=== PATIENT | female | born 1950 | race Caucasian/White ===

== ENCOUNTER → 2020-05-01 19:38 | Outpatient (ROUT) | payer MEDICARE, OTHER, SELFPAY ==
[2020-05-01 20:15] LABS: Hemoglobin A1C% w Est Avg Glu 5.5 % (4.0-6.0)
[2020-05-01 20:18] LABS: Cholesterol 226 mg/dL (140-199); Glucose 92 mg/dL (80-110); Triglycerides 41 mg/dL (35-150)
[2020-05-01 20:29] LABS: HDL Cholesterol 133 mg/dL (40-60); LDL Cholesterol Calculated 85 mg/dL (<100)
[2020-05-01 20:47] LABS: TSH w/ Reflex to FT4 1.43 uIU/mL (0.47-4.68)
== END ==
PROVIDERS: Visit Provider Internal Medicine
DX: R73.01 Impaired fasting glucose (principal); E03.9 Hypothyroidism, unspecified; E78.2 Mixed hyperlipidemia
CPT/HCPCS: 80061; 82947; 83036; 84443

== ENCOUNTER → 2022-05-23 09:59 | Outpatient (CLI) | payer MEDICARE, SELFPAY ==
[2022-05-23 10:34] LABS: Hematocrit 39.2 % (36-46); Hemoglobin 13.4 g/dL (12.0-16.0); Mean Corpuscular HGB Conc 34.3 % (30-36); Mean Corpuscular Hemoglobin 33.1 PG (26-34); Mean Corpuscular Volume 96.4 fL (80-100); Platelet Count 272 X10^3/uL (150-400); Red Blood Cell Count 4.06 X10^6/uL (4.0-5.2); White Blood Cell Count 4.6 X10^3/uL (4.5-11.0)
[2022-05-23 11:03] LABS: Alanine Aminotransferase 30 IU/L (<35); Albumin 4.8 g/dL (3.5-5.0); Albumin Globulin Ratio 1.4 (1.0-2.8); Alkaline Phosphatase 50 U/L (38-126); Aspartate Aminotransferase 40 IU/L (14-36); BUN Creatinine Ratio 42.2 (6-22); Bilirubin Total 0.3 mg/dL (0.2-1.3); Blood Urea Nitrogen 19 mg/dL (7-17); Calcium 9.6 mg/dL (8.4-10.2); Carbon Dioxide 31 mmol/L (22-32); Chloride 99 mmol/L (98-107); Cholesterol 200 mg/dL (140-199); Estimated Glomerular Filt Rate > 60 mL/min (>60); Globulin 3.5 g/dL (1.7-4.1); Glucose 101 mg/dL (80-110); HEMOLYSIS < 15 (0-50); Potassium 4.5 mmol/L (3.4-5.1); Sodium 138 mmol/L (137-145); Total Protein 8.3 g/dL (6.3-8.2); Triglycerides 41 mg/dL (35-150)
[2022-05-23 11:24] LABS: HDL Cholesterol 139 mg/dL (40-60); LDL Cholesterol Calculated 53 mg/dL (<100); Vitamin D 25 Hydroxy (D3) 54.8 ng/mL (30.0-100.0)
[2022-05-23 11:31] LABS: TSH w/ Reflex to FT4 0.04 uIU/mL (0.47-4.68)
[2022-05-23 11:58] LABS: Free T4, Direct Thyroxine 1.54 ng/dL (0.78-2.19)
== END ==
PROVIDERS: PCP Internal Medicine; Referring Provider Internal Medicine; Visit Provider Internal Medicine
DX: E03.9 Hypothyroidism, unspecified (principal); E55.9 Vitamin D deficiency, unspecified; E78.2 Mixed hyperlipidemia; J30.9 Allergic rhinitis, unspecified; J45.20 Mild intermittent asthma, uncomplicated
CPT/HCPCS: 36415; 80053; 80061; 82306; 84439; 84443; 85027

== ENCOUNTER → 2022-06-09 11:46 | Outpatient (CLI) | payer MEDICARE, SELFPAY ==
[2022-06-09 14:16] LABS: TSH w/ Reflex to FT4 0.06 uIU/mL (0.47-4.68)
[2022-06-09 14:41] LABS: Free T4, Direct Thyroxine 1.53 ng/dL (0.78-2.19)
== END ==
PROVIDERS: PCP Internal Medicine; Referring Provider Internal Medicine; Visit Provider Internal Medicine
DX: M85.88 Other specified disorders of bone density and structure, other site (principal); Z78.0 Asymptomatic menopausal state; Z13.820 Encounter for screening for osteoporosis; E03.9 Hypothyroidism, unspecified
CPT/HCPCS: 36415; 77080; 84439; 84443

== ENCOUNTER → 2023-05-25 08:39 | Outpatient (CLI) | payer MEDICARE, SELFPAY ==
[2023-05-25 09:26] LABS: Aspartate Aminotransferase 42 IU/L (14-36); BUN Creatinine Ratio 50.9 (6-22); Blood Urea Nitrogen 27 mg/dL (7-17); Calcium 10.1 mg/dL (8.4-10.2); Carbon Dioxide 31 mmol/L (22-32); Chloride 98 mmol/L (98-107); Cholesterol 192 mg/dL (140-199); Estimated Glomerular Filt Rate > 60 mL/min (>60); Glucose 82 mg/dL (80-110); HEMOLYSIS < 15 (0-50); Potassium 4.4 mmol/L (3.4-5.1); Sodium 136 mmol/L (137-145); Triglycerides 39 mg/dL (35-150)
[2023-05-25 09:36] LABS: LDL Cholesterol Calculated 43 mg/dL (<100)
[2023-05-25 09:37] LABS: HDL Cholesterol 141 mg/dL (40-60)
[2023-05-25 09:57] LABS: TSH w/ Reflex to FT4 2.31 uIU/mL (0.47-4.68)
== END ==
PROVIDERS: PCP Internal Medicine; Referring Provider Internal Medicine; Visit Provider Internal Medicine
DX: E03.9 Hypothyroidism, unspecified (principal); E78.2 Mixed hyperlipidemia
CPT/HCPCS: 36415; 80048; 80061; 84443; 84450

== ENCOUNTER → 2024-07-19 08:29 | Outpatient (CLI) | payer MEDICARE, SELFPAY ==
[2024-07-19 10:18] LABS: Aspartate Aminotransferase 42 IU/L (14-36); BUN Creatinine Ratio 31.7 (6-22); Blood Urea Nitrogen 19 mg/dL (7-17); Calcium 10.2 mg/dL (8.4-10.2); Carbon Dioxide 29 mmol/L (22-32); Chloride 98 mmol/L (98-107); Cholesterol 211 mg/dL (140-199); Estimated Glomerular Filt Rate > 60 mL/min (>60); Glucose 90 mg/dL (80-110); HEMOLYSIS < 15 (0-50); Potassium 4.5 mmol/L (3.4-5.1); Sodium 137 mmol/L (137-145); Triglycerides 39 mg/dL (35-150)
[2024-07-19 10:34] LABS: HDL Cholesterol 161 mg/dL (40-60); LDL Cholesterol Calculated 42 mg/dL (<100)
[2024-07-19 10:43] LABS: TSH w/ Reflex to FT4 3.55 uIU/mL (0.47-4.68)
== END ==
PROVIDERS: PCP Internal Medicine; Referring Provider Internal Medicine; Visit Provider Internal Medicine
DX: E78.2 Mixed hyperlipidemia (principal); E03.9 Hypothyroidism, unspecified
CPT/HCPCS: 36415; 80048; 80061; 84443; 84450